=== PATIENT | male | born 1960 | race Asian ===

== ENCOUNTER 2019-02-01 10:08 | Day surgery (SDC) | payer OTHER ==
[~2019-02-01] VITALS: Ht 170.2 cm; Wt 74.1 kg
[~2019-02-01 10:08] MED LIST: AMLODIPINE; ATORVASTATIN; LOSARTAN
[2019-02-01 11:04] VITALS: Ht 170.2 cm; Wt 74.1 kg
[2019-02-01 11:21] VITALS: BP 157/82; PULSE 87; RESP 20
[2019-02-01] MEDS ORDERED: FENTAnyl 50 MCG/ML VIAL ONE (12:04)
[2019-02-01] MEDS ORDERED: MIDAZOLAM 1 MG/ML 2 ML INJ ONE ×3 (12:04)
[2019-02-01 12:33] VITALS: BP 126/64; RESP 20
== END 2019-02-01 12:06 | disposition home or self-care (01) ==
LOC: GIL 10:08
PROVIDERS: ATTEND Internal Medicine Gastroenterology
DX: Z12.11 Encounter for screening for malignant neoplasm of colon (principal); K64.8 Other hemorrhoids; I10 Essential (primary) hypertension
CPT/HCPCS: 45378; J2250; J3010; Z7610